=== PATIENT | female | born 1985 | race Caucasian/White ===

== ENCOUNTER 2019-03-09 03:50 | Emergency (ER) | payer OTHER ==
[~2019-03-09] VITALS: Ht 149.9 cm; Wt 86.2 kg
[~2019-03-09 03:50] MED LIST: LAMOTRIGINE100 MG PO; LEVOTHYROXINE50 MCG PO; NORCO 5-325 TA1 EACH PO; ZOFRAN ODT8 MG PO
--- OUTSIDE RECORDS SUMMARY | 2019-03-09 03:52 | XMS ---
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 PHONE: [phone] KATYA SOOD Primary [facility] Current MARLEN PHONE: Unknown Yoel has no Care Guidelines for this patient. Eleazar VISIT COUNT (12 MO.) [address] [place] [address] TOTAL 3 NOTE: Visits indicate total known visits. ED/UCC VISIT TRACKING (12 MO.) 03/09/2019 03:51 [facility]I Gordon TYPE: Emergency COMPLAINT: - ANKLE INJURY 02/10/2019 21:51 [facility] NUPUR Padilla TYPE: Emergency COMPLAINT: - migraine DIAGNOSES: - Chronic migraine without aura, not intractable, without status migrainosus - migraine 07/14/2018 20:50 [facility] TYPE: Emergency COMPLAINT: - left foot pain DIAGNOSES: - left foot pain - Contusion of left great toe without damage to nail, subsequent encounter - Toe Injury INPATIENT VISIT TRACKING (12 MO.) No inpatient visits to display in this time frame [id number]
[2019-03-09] MEDS ORDERED: ACYCLOVIR400 MG PO (04:04)
[2019-03-09] MEDS ORDERED: TRAMADOL HCL50 MG PO (04:50)
[2019-03-09] MEDS ORDERED: CRUTCH1 EACH (04:51)
== END 2019-03-09 05:24 | disposition home or self-care (01) ==
LOC: ED 03:50
DX: S93.402A Sprain of unspecified ligament of left ankle, initial encounter (principal); E03.9 Hypothyroidism, unspecified; Z87.891 Personal history of nicotine dependence; Z88.8 Allergy status to other drugs, medicaments and biological substances; Z91.041 Radiographic dye allergy status; Z79.899 Other long term (current) drug therapy; X50.1XXA Overexertion from prolonged static or awkward postures, initial encounter
CPT/HCPCS: 73610; 99283-25